=== PATIENT | female | born 1975 | race Caucasian/White ===

== ENCOUNTER → 2016-05-31 | Outpatient (CLI) | payer BC | LOC: COL.RAD 13:56 | DX: R31.21 Asymptomatic microscopic hematuria (principal); R93.5 Abnormal findings on diagnostic imaging of other abdominal regions, including retroperitoneum | CPT/HCPCS: Q9967 ==

== ENCOUNTER → 2017-08-12 | Outpatient (CLI) | payer BC | LOC: MC.RAD 08-11 15:20 | DX: Z12.31 Encounter for screening mammogram for malignant neoplasm of breast (principal) ==

== ENCOUNTER → 2017-08-15 | Outpatient (CLI) | payer BC | LOC: MC.RAD 09:51 | DX: N64.89 Other specified disorders of breast (principal); N63.10 Unspecified lump in the right breast, unspecified quadrant ==

== ENCOUNTER → 2018-02-05 | Outpatient (CLI) | payer BC | LOC: MC.RAD 12:45 | DX: N64.89 Other specified disorders of breast (principal); R92.8 Other abnormal and inconclusive findings on diagnostic imaging of breast | CPT/HCPCS: G0279 ==

== ENCOUNTER → 2018-08-27 | Outpatient (CLI) | payer BC | LOC: MC.RAD 15:06 | DX: Z12.31 Encounter for screening mammogram for malignant neoplasm of breast (principal); R92.8 Other abnormal and inconclusive findings on diagnostic imaging of breast ==

== ENCOUNTER → 2019-09-30 | Outpatient (CLI) | payer OTHER | LOC: MC.RAD 16:03 | DX: Z12.31 Encounter for screening mammogram for malignant neoplasm of breast (principal) ==

== ENCOUNTER 2020-05-26 06:25 | Day surgery (SDC) | payer OTHER ==
[~2020-05-26] VITALS: Ht 160 cm; Wt 69.5 kg
[2020-05-26 07:00] VITALS: BP 130/79; PULSE 93; TEMP 96.7
[2020-05-26] MEDS ORDERED: amovig SQ (07:11)
[2020-05-26] MEDS ORDERED: PRILOSEC 20MG20 MG PO (07:12)
[2020-05-26] MEDS ORDERED: UBRELVY50 MG PO (07:12)
[2020-05-26 08:05] VITALS: BP 105/75; PULSE 91; TEMP 97.7
--- NOTE | 2020-05-26 08:05 | NUR ---
Pt to GI bay 2 via cart from [employer]. Pt awake and alert. Pt denies pain or nausea. in room. Water and apple sauce given per pt request. Warm blanket provided. Call light within reach.
[2020-05-26 08:15] VITALS: BP 108/81; PULSE 82
--- NOTE | 2020-05-26 08:15 | NUR ---
Pt continues to rest. Denies needs. Tolerating po food and fluids without c/o of nausea.
[2020-05-26 08:30] VITALS: BP 115/74; PULSE 16
--- NOTE | 2020-05-26 08:30 | NUR ---
Pt continues to rest. Denies needs. Call light within reach.
[2020-05-26 08:45] VITALS: BP 120/78; PULSE 62
--- NOTE | 2020-05-26 08:45 | NUR ---
Pt continues to rest. Denies needs. Call light within reach.
--- NOTE | 2020-05-26 09:00 | NUR ---
IV site discontinued with all parts intact. Discharge instructions reviewed. Pt voices understanding. Pt up to dress. Call light within reach.
--- NOTE | 2020-05-26 09:10 | NUR ---
Pt escorted to private car via wheel chair. Pt accompanied home by her .
== END 2020-05-26 09:10 | disposition home or self-care (01) ==
LOC: SDCO 06:25
DX: K22.2 Esophageal obstruction (principal); K22.8 Other specified diseases of esophagus; K21.9 Gastro-esophageal reflux disease without esophagitis; K44.9 Diaphragmatic hernia without obstruction or gangrene; R06.00 Dyspnea, unspecified; G43.909 Migraine, unspecified, not intractable, without status migrainosus; J30.9 Allergic rhinitis, unspecified; E66.3 Overweight; E55.9 Vitamin D deficiency, unspecified; Z91.018 Allergy to other foods; Z79.899 Other long term (current) drug therapy; Z68.29 Body mass index [BMI] 29.0-29.9, adult; Z90.710 Acquired absence of both cervix and uterus; Z80.9 Family history of malignant neoplasm, unspecified; Z82.61 Family history of arthritis; Z82.49 Family history of ischemic heart disease and other diseases of the circulatory system; Z83.3 Family history of diabetes mellitus
CPT/HCPCS: C1726; J2704; J7030

== ENCOUNTER → 2020-05-29 | Outpatient (CLI) | payer OTHER ==
[~2020-05-29] MED LIST: PRILOSEC 20MG20 MG PO; UBRELVY50 MG PO; amovig SQ
== END ==
LOC: COL.PUL 10:57
DX: R06.02 Shortness of breath (principal)

== ENCOUNTER → 2020-07-27 | Outpatient (CLI) | payer OTHER | LOC: COL.PUL 12:30 | DX: R06.02 Shortness of breath (principal) | CPT/HCPCS: J7674 ==

== ENCOUNTER → 2020-11-20 | Outpatient (CLI) | payer OTHER | LOC: MC.RAD 12:53 | DX: Z12.31 Encounter for screening mammogram for malignant neoplasm of breast (principal) ==

== ENCOUNTER 2021-06-04 14:46 | Outpatient (RCR) | payer BC ==
[2021-06-04] MEDS ORDERED: D3-5050000 IU PO (15:05)
[2021-06-04] MEDS ORDERED: CYANOCOBAL1000 MCG/M IM (15:05)
[2021-06-04 15:07] VITALS: BP 129/80; PULSE 91; TEMP 98.2
== END 2021-06-09 | disposition still patient (30) ==
LOC: EUO
DX: D50.8 Other iron deficiency anemias (principal)
CPT/HCPCS: J1756

== ENCOUNTER 2021-08-30 14:55 | Outpatient (RCR) | payer BC ==
[~2021-08-30] VITALS: Ht 160 cm; Wt 69.4 kg
[~2021-08-30 14:55] MED LIST changes: +CYANOCOBAL1000 MCG/M IM; +D3-5050000 IU PO
[2021-08-30] MEDS ORDERED: AIMOVIG AU70 MG/1 ML SQ (15:11)
[2021-08-30] MEDS ORDERED: VITAMIND3 5000 PO (15:16)
[2021-08-30] MEDS ORDERED: CAPACET 325 MG-1 CAP PO (15:17)
[2021-08-30] MEDS ORDERED: CONTRAVE1 TER PO (15:17)
[2021-08-30] MEDS ORDERED: ZOFRAN 4MG T4 MG/TAB PO (15:18)
[2021-08-30 15:30] VITALS: BP 108/62; PULSE 83; TEMP 97.6
== END 2021-08-30 15:56 ==
LOC: EUO 14:55
DX: D50.8 Other iron deficiency anemias (principal)
CPT/HCPCS: J1756

== ENCOUNTER → 2022-06-20 | Outpatient (CLI) | payer BC ==
[~2022-06-20] MED LIST changes: +AIMOVIG AU70 MG/1 ML SQ; +CAPACET 325 MG-1 CAP PO; +CONTRAVE1 TER PO; +VITAMIND3 5000 PO; +ZOFRAN 4MG T4 MG/TAB PO
== END ==
LOC: MC.RAD 06:58
DX: Z12.31 Encounter for screening mammogram for malignant neoplasm of breast (principal)

== ENCOUNTER → 2023-08-05 | Outpatient (CLI) | payer BC | LOC: MC.RAD 09:07 | DX: Z12.31 Encounter for screening mammogram for malignant neoplasm of breast (principal) ==